=== PATIENT | female | born 1965 | race African-American/Black ===

== ENCOUNTER 2016-11-07 19:39 | Emergency (ER) | payer SELFPAY ==
[~2016-11-07 19:39] MED LIST: EPINEPHRINE INJ 1 MG/10 ML DISP.SYRIN ONE; SODIUM BICARBONATE 8.4% INJ 50 MEQ/50 ML DISP.SYRIN ONE
--- NOTE | 2016-11-07 20:02 | ER Document Report ---
ED Resuscitation - General Mode of Arrival: Medic Information source: Emergency Med Personnel Cannot obtain history due to: Intubated, Unstable vital signs - HPI Onset: Just prior to arrival Severity: Severe Symptoms prior to event: Chest pain - Paramedics initial findings Unresponsive: Completely, Did not regain Respirations: No respirations - intubated Rhythm: PEA - Pre-hospital treatment Treatment: Intubated Epinephrine Dose (mg): 7 Sodium Bicarb dose (amp): 1 <DOUGLAS BRAN - Last Filed: 11/07/16 23:01> <CHARLEY HERNANDEZ - Last Filed: 11/08/16 12:28> - General Stated Complaint: POSSIBLE CARDIC ARREST Notes: Patient is a 51 year old female that presents to the emergency department today in cardiac arrest. According to EMS the patient had a witnessed arrest 20 minutes prior to their arrival to the ED. EMS reports CPR was administered immediately. Patient received 7 rounds of epinephrine and 1 round sodium bicarbonate in route but patient remained in PEA with no pulses. Patient has a history of CT in the past. According to family, patient complained of chest pain prior to the arrest. (DOUGLAS BRAN) Past Medical History - General Information source: Emergency Med Personnel Cannot obtain history due to: Intubated, Unstable vital signs - Social History Smoking Status: Unknown if Ever Smoked Family History: None - Medical History Medical History: Negative Surgical Hx: Negative <DOUGLAS BRAN - Last Filed: 11/07/16 23:01> Review of Systems - Review of Systems -: Yes ROS unobtainable due to patient's medical condition <DOUGLAS BRAN - Last Filed: 11/07/16 23:01> Physical Exam - General General appearance: Unresponsive In distress: Severe - HEENT Head: Normocephalic, Atraumatic Pupils: Fixed - no corneal reflex - Respiratory Respiratory status: Other - Adilson airway in place on arrival. No: Agonal respirations - Cardiovascular Rhythm: Other - PEA on monitor, CPR in progress - Abdominal Distension: Distended - Extremities General upper extremity: No: Edema General lower extremity: No: Edema - Neurological Neuro grossly intact: No [place] Coma Scale Eye Opening: None [place] Coma Scale Verbal: None [place] Coma Scale Motor: None Tiny Coma Scale Total: 3 - Psychological Associated symptoms: Other - unable to assess - Skin Skin Temperature: Cool Skin Moisture: Dry <DOUGLAS BRAN - Last Filed: 11/07/16 23:01> <CHARLEY HERNANDEZ - Last Filed: 11/08/16 12:28> - Vital signs Vitals: Resp 37 H 11/07/16 19:42 - Cardiovascular Notes: 2+ femoral pulses bilaterally during compressions (DOUGLAS BRAN) Course <DOUGLAS BRAN - Last Filed: 11/07/16 23:01> <CHARLEY HERNANDEZ - Last Filed: 11/08/16 12:28> - Re-evaluation Re-evalutation: 11/07/16 Patient is a 51-year-old female with a history of coronary artery disease who presents in cardiac arrest. Multiple rounds of CPR were performed. No return of pulses. No cardiac activity on ultrasound. Code was called at 1999. Family came to emergency department. Patient apparently came to visit daughter who recently gave . Patient had complained of shoulder pain and asked them to give her her nitroglycerin. Patient then went down and CPR was initiated. Nurse discussed case with manager medical device. They will not need to do an exam. Autopsy offered. Daughter declined. I have signed the certificate for this patient. Cause of coronary artery disease, and cardiac arrest. (CHARLEY HERNANDEZ) - Vital Signs Vital signs: Temp Pulse Resp BP Pulse Ox 10 L 43 L 11/07/16 20:00 11/07/16 19:58 - Laboratory Laboratory results interpreted by me: 11/07/16 19:50 POC Glucose 301 H Procedures - Intubation Orotracheal Airway evaluation: Copious secretions, Large tongue, Obese Mallampati Classification: Class 2 Intubation method: Orotracheal Blade size: 4 Equipment used: Glidescope ETT size: 7.5 Breath Sounds after Intubation: Equal End tidal CO2 confirmed: Yes Post Intubation Xray: No - patient Intubation Complications: Oral-unsuccessful attempt - x 2. Airway edema, bleeding in OP <CHARLEY HERNANDEZ - Last Filed: 11/08/16 12:28> Critical Care Note - Critical Care Note Total time excluding time spent on procedures (mins): 35 - Evaluation and management of cardiac and respiratory arrest, performance of CPR, counseling of patient family <CHARLEY HERNANDEZ - Last Filed: 11/08/16 12:28> Discharge <DOUGLAS BRAN - Last Filed: 11/07/16 23:01> <CHARLEY HERNANDEZ - Last Filed: 11/08/16 12:28> - Discharge Clinical Impression: Cardiac arrest, Respiratory arrest Condition: Poor Disposition: Scribe Attestation: 11/07/16 23:58 I personally performed the services described in the documentation, reviewed and edited the documentation which was dictated to the scribe in my presence, and it accurately records my words and actions. (CHARLEY HERNANDEZ) Scribe Documentation - Scribe Written by Scribe:: Jose Reece, 11/07/2016 [id number] acting as scribe for :: Thalia <DOUGLAS BRAN - Last Filed: 11/07/16 23:01>
== END 2016-11-07 21:00 | disposition expired ==
LOC: ER 19:39
DX: I25.10 Atherosclerotic heart disease of native coronary artery without angina pectoris (principal); I46.9 Cardiac arrest, cause unspecified; I25.2 Old myocardial infarction
CPT/HCPCS: 99291; 92950; 96374; 82962; J0171; J3490